=== PATIENT | male | born 1950 | race Hispanic/Latino ===

== ENCOUNTER 2025-05-17 11:59 | Emergency (ER) | payer MEDICARE ==
[~2025-05-17] VITALS: Ht 157.5 cm; Wt 68.0 kg
[2025-05-17 12:38] VITALS: TEMP 97.6
[2025-05-17 13:04] LABS: BASOPHILS % 0.6 % (0.0-1.0); EOSINOPHILS % 3.4 % (0.0-6.0); LYMPHOCYTES % 37.9 % (18.0-39.1); MONOCYTES % 12.1 % (4.4-11.3); NEUTROPHILS % 45.7 % (38.7-80.0); RED CELL DISTRIBUTION WIDTH 15.2 % (11.7-14.4)
[2025-05-17 13:25] LABS: INR 1.28
[2025-05-17 13:34] LABS: EST GLOMERULAR FILTRATION RATE 102.0 ML/MIN (>=60)
[2025-05-17] MEDS: FUROSEMIDE INJ 10 MG/ML 4 ML VIAL IV ONE ×2 (16:09→18:04)
[2025-05-17 17:35] VITALS: PULSE 71; RESP 16; O2SAT 99
== END 2025-05-17 18:46 | disposition home or self-care (01) ==
LOC: ER 13:00
DX: E88.09 Other disorders of plasma-protein metabolism, not elsewhere classified (principal); K76.9 Liver disease, unspecified; I50.9 Heart failure, unspecified; R94.31 Abnormal electrocardiogram [ECG] [EKG]
CPT/HCPCS: 36415; 71045; 80053; 82550; 83735; 83880; 84484; 85025; 85610; 85730; 93005; 99284; J1938